=== PATIENT | female | born 1995 | race Caucasian/White ===

== ENCOUNTER 2016-12-19 19:45 | Emergency (ER) | payer MEDICAID ==
[~2016-12-19] VITALS: Ht 162.6 cm; Wt 95.6 kg
[~2016-12-19 19:45] MED LIST: MECL-62 PO; TRAM50 PO
[2016-12-19 19:50] VITALS: BP 122/65; PULSE 74; RESP 18; TEMP 97.9; O2SAT 99
--- NOTE | 2016-12-19 20:50 | PD ---
HPI Chief Complaint: Cold / Flu Symptoms Time Seen by Provider: 20:48 Travel History International Travel<30 days: No Contact w/Intl Traveler<30days: No Traveled to known affect area: No History of Present Illness HPI 21 year-old female presents to the emergency department for complaint of cough and cold symptoms. Patient states she's had cough with associated congestion. Cough has not produced any yellow-green phlegm. Patient denies fever or chills. Patient does not have sore throat earache noted sinus drainage. 2-year -old child has upper respiratory infection at home and doesn't attend daycare. Mother states she is concerned about developing any infection because she is 22 weeks . Patient is 3 para 2 AB 0. Patient is followed closely by her CONTINUITY PERSON and does take vitamins. She did not contact her CONTINUITY PERSON regarding her symptoms. Patient that she would check care first and then further CONTINUITY PERSON subsequently. Patient denies any shortness of breath, chest pain , abdominal pain, back pain, flank pain; no nausea no vomiting; no dysuria frequency urgency hematuria or vaginal bleeding or vaginal discharge. Patient rates pain 0/10 in intensity. PFSH Past Medical History Narrative Medical Ab0; nursing notes reviewed Diminished Hearing: No Hypertension: Yes Immunizations Current: Yes Tetanus Vaccination: > 5 Years Influenza Vaccination: No ?: : 2 Para: 2 Miscarriage: 0 : 0 Past Surgical History Surgical History: No Previous Surgery Social History Alcohol Use: No Tobacco Use: No Substance Use: No Allergies-Medications (Allergen,Severity, Reaction): Coded Allergies: No Known Allergies (Verified , 12/19/16) Reported Meds & Prescriptions Reported Meds & Active Scripts Active No Active Prescriptions or Reported Medications Narrative Medication vitamins Review of Systems Except as stated in HPI: all other systems reviewed are Neg General / Constitutional: No: Fever, Chills HENT: Positive: Congestion, No: Headaches, Sore Throat, Rhinorrhea, Earache Cardiovascular: No: Chest Pain or Discomfort Respiratory: Positive: Cough, No: Shortness of Breath, Wheezing Gastrointestinal: No: Nausea, Vomiting, Abdominal Pain Genitourinary: No: Urgency, Frequency, Dysuria, Hematuria, Pelvic Pain, Flank Pain, Discharge, Vaginal Bleeding Musculoskeletal: No: Myalgias, Arthralgias Skin: No Itching Neurologic: No: Weakness Psychiatric: No: Anxiety Endocrine: No: Heat Intolerance Hematologic/Lymphatic: No: Easy Bruising Physical Exam Narrative GENERAL: Well-developed well-nourished female in no acute distress no respiratory distress SKIN: Warm and dry. HEAD: Normocephalic. EYES: No scleral icterus. No injection or drainage. ENT: Mucous membranes moist ; airway is patent; several dental caries; posterior pharynx no redness no edema no exudative change; tympanic membranes no redness dullness loss of landmarks or perforation. NECK: Supple, trachea midline. No JVD or lymphadenopathy. No meningismus no nuchal rigidity. CARDIOVASCULAR: Regular rate and rhythm without murmurs, gallops, or rubs. RESPIRATORY: Breath sounds equal bilaterally. No accessory muscle use. Lungs are clear to auscultation in all dobbins. GASTROINTESTINAL: Abdomen soft, non-tender, nondistended. Fundal height to umbilicus; heart tones 146 (performed by nursing) MUSCULOSKELETAL: No cyanosis, no edema. BACK: Nontender without obvious deformity. No CVA tenderness. 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 Diagnosis Primary Impression: URI (upper respiratory infection) Qualified Code: J06.9 - Upper respiratory tract infection, unspecified type Additional Impression: Qualified Code: Z3A.22 - 22 weeks gestation of Referrals: Corporate Attorney call for appointment Primary Care Physician call for appointment Additional Instructions: Increase fluid hydration Follow-up with her CONTINUITY PERSON Continue your vitamins May take acetaminophen/Tylenol as needed as often as every 4 hours for fever 100.4F or greater Return to the emergency department for any concerns or change in condition Scripts No Active Prescriptions or Reported Meds Disposition: 01 DISCHARGE HOME Condition: Stable Salter,Vivi H. MD Dec 19, 2016 20:50
== END 2016-12-19 21:05 | disposition home or self-care (01) ==
LOC: PHEFT 19:45
DX: O26.92 Pregnancy related conditions, unspecified, second trimester (principal); O10.912 Unspecified pre-existing hypertension complicating pregnancy, second trimester; J06.9 Acute upper respiratory infection, unspecified; Z3A.22 22 weeks gestation of pregnancy
CPT/HCPCS: 99283

== ENCOUNTER 2017-04-18 11:17 | Inpatient (IN) | payer MEDICAID ==
[~2017-04-18] VITALS: Ht 162.6 cm; Wt 108.0 kg
[2017-04-18] MEDS ORDERED: LACTATED RINGER'S 1000 ML INJ 1,000 ML IV SCH (12:33)
--- NOTE | 2017-04-18 12:41 | HHI.HP ---
HPI Chief Complaint induction at 39 weeks Date Seen: Apr 18, 2017 Time Seen: 12:00 Travel History International Travel<30 Days: No Contact w/Intl Traveler<30Days: No Known Affected Area: No History of Present Illness HPI 22 yo wf who is 39 weeks for induction of labor with favorable cervix Para: 2 : 3 History Past Medical History Medical History: Denies Significant Hx Obstetric History Obstetric History x2 Past Surgical History Surgical History: No Previous Surgery Family History Family History: Negative Social History Alcohol Use: No Tobacco Use: No Substance Abuse: No Allergies-Medications (Allergen,Severity, Reaction): Coded Allergies: No Known Allergies (Verified , 12/19/16) Home Meds No Active Prescriptions or Reported Meds Review of Systems Except as stated in HPI: all other systems reviewed are Neg Physical Exam Narrative GENERAL: Well-nourished, well-developed patient. SKIN: Warm and dry. HEAD: Normocephalic and atraumatic. EYES: No scleral icterus. No injection or drainage. ENT: No nasal drainage noted. Mucous membranes pink. Airway patent. NECK: Supple, trachea midline. No JVD. CARDIOVASCULAR: Regular rate and rhythm without murmurs, gallops, or rubs. RESPIRATORY: Breath sounds equal bilaterally. No accessory muscle use. BREASTS: Bilateral exam showed no masses , no retractions, no nipple discharge. ABDOMEN/GI: Abdomen soft, non-tender, bowel sounds present, no rebound, no guarding Gravid to [-] weeks size Fundal Height: [-] GENITOURINARY: External Genitalia: intact and normal in appearance BUS glands: [-] Cervix: [-] Dilatation: [-] Effacement: [-] Station: [-] Presentation: [-] Membranes: [intact or ruptured] Uterine Contractions: [-] FHT's: Category: [-] Baseline: [-] Reactive: [-] Variability: [-] Decels: [-] EXTREMITIES: No cyanosis or edema. BACK: Nontender without obvious deformity. No CVA tenderness. NEUROLOGICAL: Awake and alert. Motor and sensory grossly within normal limits. Five out of 5 muscle strength in all muscle groups. Normal speech. Data Data Vital Signs Reviewed: Yes Orders Admit To Inpatient (04/18/17 ) Code Status (04/18/17 12:33) Vital Signs (Adult) .Per protocol (04/18/17 12:33) Heart (04/18/17 12:33) Amnioinfusion (04/18/17 12:33) Urinary Catheter Management .ONCE (04/18/17 12:33) Lactated Ringer's 1000 Ml Inj (Lr 1000 M (04/18/17 12:33) Lactated Ringer's 1000 Ml Inj (Lr 1000 M (04/18/17 12:33) Sodium Chlorid 0.9% 500 Ml Inj (Ns 500 M (04/18/17 12:45) Sodium Chlor 0.9% 1000 Ml Inj (Ns 1000 M (04/18/17 12:53) Lidocaine 1% Inj (50 Ml) (Xylocaine 1% I (04/18/17 12:45) Citric Acid-Sodium Citrate Liq (Bicitra (04/18/17 12:45) Fentanyl Inj (Fentanyl Inj) (04/18/17 12:45) Fentanyl Inj (Fentanyl Inj) (04/18/17 12:45) Complete Blood Count With Diff (04/18/17 12:33) Hold Clot (04/18/17 12:33) Abo/Rh Blood Type (04/18/17 12:33) Urinalysis - C+S If Indicated (04/18/17 12:33) Resp Oxygen Non Rebreathe Mask (04/18/17 ) ^ Epidural / Intrathecal Infus (04/18/17 12:33) Oxytocin 30 Units-500ml Premix (Pitocin (04/18/17 12:45) Lidocaine 1% Inj (50 Ml) (Xylocaine 1% I (04/18/17 12:45) Light Mineral Oil (Muri-Lube Oil) (04/18/17 12:45) Inpatient Certification (04/18/17 ) Specimen To Be Collected PRN (04/18/17 12:33) ^ Non Stress Test (04/18/17 12:37) Response To Medication .Post New Med Administration, Reaction (04/18/17 12:37) ^ Discontinue Medication (04/18/17 12:37) Oxytocin 30 Units-500ml Premix (Pitocin (04/18/17 12:45) Assessment/Plan Problem List: (1) 39 weeks gestation of Assessment and Plan for induction of labor Daniel Medellin MD Apr 18, 2017 12:41
[2017-04-18] MEDS ORDERED: SODIUM CHLORID 0.9% 500 ML INJ 500 ML IV PRN (12:45)
[2017-04-18] MEDS ORDERED: OXYTOCIN 30 UNITS-500ML PREMIX 500 ML IV SCH ×2 (12:45→23:15)
[2017-04-18] MEDS ORDERED: MINERAL OIL 10 ML VIAL TOPICAL PRN (12:45)
[2017-04-18] MEDS ORDERED: CITRIC ACID-SODIUM CITRATE LIQ 30 ML UDC PO SCH (12:45)
[2017-04-18] MEDS ORDERED: OXYTOCIN 30 UNITS-500ML PREMIX 500 ML IV ONE (12:45)
[2017-04-18] MEDS ORDERED: LIDOCAINE HCL 1% 50 ML VIAL INFIL PRN (12:45)
[2017-04-18] MEDS ORDERED: LIDOCAINE HCL 1% 50 ML VIAL I-DERMAL PRN (12:45)
[2017-04-18] MEDS ORDERED: SODIUM CHLOR 0.9% 1000 ML INJ 1,000 ML IV PRN (12:53)
[2017-04-18 13:06] LABS: AUTOMATED NEUTROPHIL # 6.1 TH/MM3 (1.8-7.7); BASOPHIL % 0.1 % (0.0-2.0); EOSINOPHIL % 0.4 % (0.0-4.0); HEMATOCRIT 35.5 % (35.0-46.0); HEMO FLAGS DIFF FINAL; LYMPH % 15.4 % (9.0-44.0); LYMPHOCYTE # 1.2 TH/MM3 (1.0-4.8); MEAN CELL VOLUME 86.6 FL (80.0-100.0); MEAN CORPUSCULAR HEMOGLOBIN 28.6 PG (27.0-34.0); MONO % 6.5 % (0.0-8.0); NEUT % 77.6 % (16.0-70.0); PLATELET COUNT 191 TH/MM3 (150-450); RED CELL DISTRIBUTION WIDTH 15.4 % (11.6-17.2); WHITE BLOOD COUNT 7.8 TH/MM3 (4.0-11.0)
[2017-04-18 13:14] LABS: BACTERIA, URINE MOD /hpf; BLOOD, URINE NEG (NEG); COMMENT (UR) CULTURE INDICATED; CULTURE IF INDICATED CULTURE INDICATED; GLUCOSE,URINE NEG (NEG); KETONE, URINE NEG (NEG); MUCUS URINE FEW /lpf (OCC); NITRITE,URINE NEG (NEG); PH, URINE 6.5 (5.0-8.5); SQUAMOUS EPITHELIAL CELL URINE 21 /hpf (0-5); URINE COLOR YELLOW (YELLW/STRAW)
[2017-04-18] MEDS ORDERED: DIPHTH/TETANUS/ACEL PERTUSSIS (BOOSTER) 0.5 ML VIAL/PFS IM ONE (16:00)
[2017-04-18] MEDS ORDERED: MEASLES, MUMPS, RUBELLA VACCINE 0.5 ML VIAL SQ ONE (16:00)
--- NOTE | 2017-04-18 17:01 | PD.LABORPN ---
Subjective Subjective doing well feeling CTX on meds Objective Objective Pelvic Exam: Cervix: 3 Dilatation: 3 Effacement: 80 Station: [-] Presentation: vtx Membranes: AROM ruptured] Uterine Contractions: q2-3 FHT's: Category: 1 Baseline: [-] Reactive: [-] Variability: [-] Decels: [-] Assessment/Plan Problem List: (1) 39 weeks gestation of Plan: pitocin now AROM Daniel Medellin MD Apr 18, 2017 17:01
[2017-04-18] MEDS: LACTATED RINGER'S 1000 ML INJ 1,000 ML IV PRN ×2 (17:32→18:52)
[2017-04-18] MEDS ORDERED: fentaNYL 2MCG-BUPIV 0.125% INJ 100 ML ONE (17:39)
[2017-04-18] MEDS ORDERED: ePHEDrine/NS 25 MG/5 ML SYR ONE (17:39)
[2017-04-18] MEDS ORDERED: fentaNYL 2MCG-BUPIV 0.125% 100 ML EPIDURAL SCH (19:15)
[2017-04-18] MEDS ORDERED: ePHEDrine/NS 25 MG/5 ML SYR IV PRN (19:15)
[2017-04-18] MEDS ORDERED: NO SYSTEM NARCOTICS PRN (19:15)
[2017-04-18] MEDS ORDERED: DO NOT ADMINISTER ANTICOAGULANTS PRN (19:15)
[2017-04-18] MEDS ORDERED: ONDANSETRON HCL 4 MG/2 ML VIAL ONE (19:21)
--- NOTE | 2017-04-18 23:04 | PD.OB.DELI ---
Delivery Date: Apr 18, 2017 Anesthesia: Epidural Episiotomy: None Vaginal Delivery: Normal, Spontaneous Presentation: Occiput anterior Nuchal Cord: None Delayed cord clamping (45 sec): Yes : Male One Minute : 8 Five Minute : 9 Weight: 8#12 oz Placenta: Spontaneous delivery, Intact, 3 vessel cord Laceration: Vaginal laceration, 1 deg Repair: Chromic running Daniel Medellin MD Apr 18, 2017 23:04
[2017-04-18] MEDS ORDERED: ONDANSETRON ODT 4 MG TAB PO PRN (23:15)
[2017-04-18] MEDS ORDERED: oxyCODONE/ACETAMINOPHEN 5 MG/325 MG TAB PO PRN ×2 (23:15)
[2017-04-18] MEDS ORDERED: ZOLPIDEM TARTRATE 5 MG TAB PO PRN (23:15)
[2017-04-18] MEDS ORDERED: SODIUM CHLORIDE 0.9% FLUSH 10 ML FLUSH IV FLUSH PRN (23:15)
[2017-04-18] MEDS ORDERED: ALUMINUM/MAGNESIUM/SIMETH 30 ML CUP PO PRN (23:15)
[2017-04-18] MEDS ORDERED: BENZOCAINE 20% TOPICAL SPRAY 60 ML CAN TOPICAL PRN (23:15)
[2017-04-19] MEDS: WITCH HAZEL 50%/GLYCERIN 12.5% 40 PAD JAR TOPICAL PRN ×2 (01:30→20:45)
[2017-04-19] MEDS: DOCUSATE SODIUM 50 MG/SENNA 8.6 MG TAB PO PRN ×2 (01:31→20:33)
[2017-04-19] MEDS: IBUPROFEN 600 MG TAB PO PRN ×4 (01:31→20:33)
[2017-04-19] MEDS: ACETAMINOPHEN 325 MG TAB PO PRN ×3 (06:39→20:33)
[2017-04-19] MEDS ORDERED: SODIUM CHLORIDE 0.9% FLUSH 10 ML FLUSH IV FLUSH SCH (09:00)
--- NOTE | 2017-04-19 11:33 | HHI.OB ---
Subjective Post Day: 2 Remarks doing well Objective Objective Remarks GENERAL: Well-nourished, well-developed patient. ABDOMEN/GI: Abdomen soft, non-tender. Fundus: Firm, non-tender at umbilicus. GENITOURINARY: Light to moderate bleeding. EXTREMITIES: No cyanosis or edema, non-tender, without signs of DVT. Medications and IVs Current Medications Medications (Trade) Dose Ordered Sig/Awa Route Start Time Stop Time Status Last Admin Miscellaneous Information No systemic narcotics to be given except... UNSCH PRN .XX 04/18/17 19:15 04/19/17 19:14 Miscellaneous Information DO NOT ADMINISTER ANY ANTICOAGUL... UNSCH PRN .XX 04/18/17 19:15 04/19/17 19:14 (NS Flush) 2 ml BID IV FLUSH 04/19/17 09:00 (NS Flush) 2 ml UNSCH PRN IV FLUSH 04/18/17 23:15 (Tylenol) 650 mg Q4H PRN PO 04/18/17 23:15 04/19/17 06:39 (Motrin) 600 mg Q6H PRN PO 04/18/17 23:15 04/19/17 06:39 (Percocet 5-325 Mg) 1 tab Q4H PRN PO 04/18/17 23:15 (Percocet 5-325 Mg) 2 tab Q4H PRN PO 04/18/17 23:15 (Americaine 20% Top Spr) 1 spray Q4H PRN TOPICAL 04/18/17 23:15 04/19/17 01:31 (Tucks Pads) 1 applic QID PRN TOPICAL 04/18/17 23:15 04/19/17 01:30 (Zoe-Colace) 2 tab Q12H PRN PO 04/18/17 23:15 04/19/17 01:31 (Ambien) 5 mg HS PRN PO 04/18/17 23:15 (Mag-Al Plus Susp Liq) 15 ml Q8H PRN PO 04/18/17 23:15 (Zofran Odt) 4 mg Q6H PRN PO 04/18/17 23:15 Assessment/Plan Problem List: (1) 39 weeks gestation of Plan: pitocin now AROM (2) Spontaneous vaginal delivery Assessment and Plan Lacie,Daniel Rajan C. MD Apr 19, 2017 11:33
[2017-04-20 08:00] VITALS: BP 136/78; PULSE 73; RESP 18; TEMP 97.8
[2017-04-20] MEDS: DOCUSATE SODIUM 50 MG/SENNA 8.6 MG TAB PO PRN (09:15)
[2017-04-20] MEDS: ACETAMINOPHEN 325 MG TAB PO PRN ×2 (09:16→15:36)
[2017-04-20] MEDS: IBUPROFEN 600 MG TAB PO PRN ×2 (09:16→15:36)
--- NOTE | 2017-04-20 13:47 | HHI.OB ---
Subjective Post Day: 2 Remarks doing well Objective Vitals/I&O Vital Signs Date Time Temp Pulse Resp B/P Pulse Ox O2 Delivery O2 Flow Rate FiO2 04/20/17 08:00 97.8 73 18 04/20/17 08:00 136/78 Objective Remarks GENERAL: Well-nourished, well-developed patient. ABDOMEN/GI: Abdomen soft, non-tender. Fundus: Firm, non-tender at umbilicus. GENITOURINARY: Light to moderate bleeding. EXTREMITIES: No cyanosis or edema, non-tender, without signs of DVT. Medications and IVs Current Medications Medications (Trade) Dose Ordered Sig/Awa Route Start Time Stop Time Status Last Admin (NS Flush) 2 ml BID IV FLUSH 04/19/17 09:00 (NS Flush) 2 ml UNSCH PRN IV FLUSH 04/18/17 23:15 (Tylenol) 650 mg Q4H PRN PO 04/18/17 23:15 04/20/17 09:16 (Motrin) 600 mg Q6H PRN PO 04/18/17 23:15 04/20/17 09:16 (Percocet 5-325 Mg) 1 tab Q4H PRN PO 04/18/17 23:15 (Percocet 5-325 Mg) 2 tab Q4H PRN PO 04/18/17 23:15 (Americaine 20% Top Spr) 1 spray Q4H PRN TOPICAL 04/18/17 23:15 04/19/17 01:31 (Tucks Pads) 1 applic QID PRN TOPICAL 04/18/17 23:15 04/19/17 20:45 (Zoe-Colace) 2 tab Q12H PRN PO 04/18/17 23:15 04/20/17 09:15 (Ambien) 5 mg HS PRN PO 04/18/17 23:15 (Mag-Al Plus Susp Liq) 15 ml Q8H PRN PO 04/18/17 23:15 (Zofran Odt) 4 mg Q6H PRN PO 04/18/17 23:15 Assessment/Plan Problem List: (1) 39 weeks gestation of Plan: pitocin now AROM (2) Spontaneous vaginal delivery Assessment and Plan Daniel Medellin MD Apr 20, 2017 13:47
[2017-04-20] MEDS ORDERED: OXYC1TAB63 PO (13:48)
--- NOTE | 2017-04-20 13:49 | HHI.DCPOC ---
Discharge Care Plan Diagnosis: (1) Spontaneous vaginal delivery Report Symptoms to Your Doctor -Temperature above 100.5 degrees -Redness, of incision or excessive or foul smelling drainage -Unusual pain or calf pain -Increased vaginal bleeding -Painful or difficulty urinating -Feelings of extreme sadness or anxiety after 2 weeks Goals to Promote Your Health * To prevent worsening of your condition and complications * To maintain your health at the optimal level Directions to Meet Your Goals Take your medications as prescribed Follow your dietary instruction Follow activity as directed Ensure plenty of rest for recovery Drink fluids for hydration Keep your appointments as scheduled Take your immunizations and boosters as scheduled If your symptoms worsen call your PCP, if no PCP go to Urgent Care Center or Emergency Room Smoking is Dangerous to Your Health. Avoid second hand smoke Call the 24-hour crisis hotline for domestic abuse at Daniel Medellin MD Apr 20, 2017 13:49
--- NOTE | 2017-04-20 13:50 | HHI.DS ---
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
== END 2017-04-20 16:03 | disposition home or self-care (01) | DRG 775 ==
LOC: H2EB 11:17 → H1EA 04-19 00:49
PROVIDERS: ADMIT Obstetrics & Gynecology; ATTEND Obstetrics & Gynecology
PROC: 10E0XZZ Delivery of Products of Conception, External Approach (ICD-10-PCS; principal; 2017-04-18)
PROC: 0HQ9XZZ Repair Perineum Skin, External Approach (ICD-10-PCS; 2017-04-18)
PROC: 00HU33Z Insertion of Infusion Device into Spinal Canal, Percutaneous Approach (ICD-10-PCS; 2017-04-18)
PROC: 3E0R3CZ (ICD-10-PCS; 2017-04-18)
PROC: 10907ZC Drainage of Amniotic Fluid, Therapeutic from Products of Conception, Via Natural or Artificial Opening (ICD-10-PCS; 2017-04-18)
DX: O70.0 First degree perineal laceration during delivery (principal); Z37.0 Single live birth; Z3A.39 39 weeks gestation of pregnancy
CPT/HCPCS: 59025; 81001; 85025; 87086; J2405; J2590; J7120

== ENCOUNTER 2017-04-26 13:00 | Emergency (ER) | payer MEDICAID ==
[~2017-04-26] VITALS: Ht 162.6 cm; Wt 98.0 kg
[2017-04-26 13:00] VITALS: BP 162/84; PULSE 71; RESP 16; TEMP 98.1; O2SAT 97
[~2017-04-26 13:00] MED LIST changes: -MECL-62 PO; +OXYC1TAB63 PO; -TRAM50 PO
[2017-04-26 13:24] LABS: BLOOD, URINE LARGE (NEG); GLUCOSE,URINE NEG (NEG); KETONE, URINE NEG (NEG); NITRITE,URINE NEG (NEG); PH, URINE 6.5 (5.0-8.5)
[2017-04-26 13:25] LABS: METHOD OF COLLECTION CLEAN CATCH; URINE COLOR YELLOW (YELLW/STRAW)
[2017-04-26 13:30] LABS: BACTERIA, URINE FEW /hpf; CULTURE IF INDICATED CULTURE INDICATED
[2017-04-26 13:31] LABS: COMMENT (UR) CULTURE INDICATED; COMMENT2 (UR) MUCOUS PRESENT
--- NOTE | 2017-04-26 13:40 | PD ---
HPI Chief Complaint: Abdominal Pain Time Seen by Provider: 13:34 Travel History International Travel<30 days: No Contact w/Intl Traveler<30days: No Traveled to known affect area: No History of Present Illness HPI Patient presents with acute onset of right lower abdominal quadrant pain yesterday that has radiated across to the left today. Denies any change in urine or bowel. Denies any chest pain shortness of breath. Denies any nausea vomiting or fever. Reports a vaginal 8 days ago with a first-degree tear. She is not breast-feeding. Denies any previous abdominal surgeries. PFSH Past Medical History Diminished Hearing: No Hypertension: Yes Immunizations Current: Yes ?: Not LMP: ONE WEEK POST : 2 Para: 2 Miscarriage: 0 : 0 Social History Alcohol Use: No Tobacco Use: No Substance Use: No Allergies-Medications (Allergen,Severity, Reaction): Coded Allergies: No Known Allergies (Verified , 04/26/17) Reported Meds & Prescriptions Reported Meds & Active Scripts Active No Active Prescriptions or Reported Medications Review of Systems General / Constitutional: No: Fever Eyes: No: Visual changes HENT: No: Headaches Cardiovascular: No: Chest Pain or Discomfort Respiratory: No: Shortness of Breath Gastrointestinal: Positive: Abdominal Pain Genitourinary: No: Dysuria Musculoskeletal: No: Pain Skin: No Rash Neurologic: No: Weakness Psychiatric: No: Depression Endocrine: No: Polydipsia Hematologic/Lymphatic: No: Easy Bruising Physical Exam Narrative GENERAL: Well-nourished, well-developed patient. SKIN: Focused skin assessment warm/dry. HEAD: Normocephalic. EYES: No scleral icterus. No injection or drainage. NECK: Supple, trachea midline. No JVD or lymphadenopathy. CARDIOVASCULAR: Regular rate and rhythm without murmurs, gallops, or rubs. RESPIRATORY: Breath sounds equal bilaterally. No accessory muscle use. GASTROINTESTINAL: Abdomen soft, diffusely tender over the entire abdomen, nondistended. MUSCULOSKELETAL: No cyanosis, or edema. BACK: Nontender without obvious deformity. No CVA tenderness. Data Data Last Documented VS Vital Signs Date Time Temp Pulse Resp B/P Pulse Ox O2 Delivery O2 Flow Rate FiO2 04/26/17 13:51 97 Room Air 04/26/17 13:00 98.1 71 16 162/84 Orders Urinalysis - C+S If Indicated (04/26/17 13:07) Urine Culture (04/26/17 13:15) Complete Blood Count With Diff (04/26/17 13:34) Comprehensive Metabolic Panel (04/26/17 13:34) Lactic Acid (04/26/17 13:34) Ct Abd/Pel W Iv Contrast(Rout) (04/26/17 13:34) Iv Access Insert/Monitor (04/26/17 13:34) Ecg Monitoring (04/26/17 13:34) Oximetry (04/26/17 13:34) NPO (04/26/17 13:34) Sodium Chloride 0.9% Flush (Ns Flush) (04/26/17 13:45) Iohexol 350 Inj (Omnipaque 350 Inj) (04/26/17 14:10) Labs Laboratory Tests Test 04/26/17 04/26/17 13:15 13:52 Urine Collection Type CLEAN CATCH Urine Color YELLOW Urine Turbidity SLIGHT Urine pH 6.5 Urine Specific [place] 1.014 Urine Protein 30 mg/dL Urine Glucose (UA) NEG mg/dL Urine Ketones NEG mg/dL Urine Occult Blood LARGE Urine Nitrite NEG Urine Bilirubin NEG Urine Leukocyte Esterase LARGE Urine RBC 10-14 /hpf Urine WBC 50-99 /hpf Urine WBC Clumps MOD Urine Squamous Epithelial 6-8 /hpf Cells Urine Amorphous Sediment FEW Urine Bacteria FEW /hpf Microscopic Urinalysis Comment CULTURE INDICATED Urine Collection Time 1315 White Blood Count 5.7 TH/MM3 Red Blood Count 4.58 MIL/MM3 Hemoglobin 13.1 GM/DL Hematocrit 38.6 % Mean Corpuscular Volume 84.3 FL Mean Corpuscular Hemoglobin 28.5 PG Mean Corpuscular Hemoglobin 33.8 % Concent Red Cell Distribution Width 14.0 % Platelet Count 308 TH/MM3 Mean Platelet Volume 6.7 FL Neutrophils (%) (Auto) 73.1 % Lymphocytes (%) (Auto) 19.9 % Monocytes (%) (Auto) 4.8 % Eosinophils (%) (Auto) 1.7 % Basophils (%) (Auto) 0.5 % Neutrophils # (Auto) 4.2 TH/MM3 Lymphocytes # (Auto) 1.1 TH/MM3 Monocytes # (Auto) 0.3 TH/MM3 Eosinophils # (Auto) 0.1 TH/MM3 Basophils # (Auto) 0.0 TH/MM3 CBC Comment DIFF FINAL Differential Comment Sodium Level 143 MEQ/L Potassium Level 3.6 MEQ/L Chloride Level 111 MEQ/L Carbon Dioxide Level 23.0 MEQ/L Anion Gap 9 MEQ/L Blood Urea Nitrogen 10 MG/DL Creatinine 0.68 MG/DL Estimat Glomerular Filtration 106 ML/MIN Rate Random Glucose 80 MG/DL Lactic Acid Level 0.8 mmol/L Calcium Level 8.9 MG/DL Total Bilirubin 0.3 MG/DL Aspartate Amino Transf 36 U/L (AST/SGOT) Alanine Aminotransferase 79 U/L (ALT/SGPT) Alkaline Phosphatase 160 U/L Total Protein 7.1 GM/DL Albumin 3.0 GM/DL MDM Medical Decision Making Medical Screen Exam Complete: Yes Emergency Medical Condition: Yes Differential Diagnosis Ovarian torsion, postdelivery pain, bowel obstruction, ileus, appendicitis Narrative Course Assessment and plan discussed with patient and at bedside. Last 72 hours Impressions Abdomen/Pelvis CT 04/26/17 1334 Signed Impressions: Service Date/Time: Wednesday, April 26, 2017 14:00 - CONCLUSION: 1. Enlarged uterus characteristic of expected appearance. 2. No evidence of extrauterine fluid collections or acute process. 3. Unremarkable exam. Jude Winters MD Diagnosis Primary Impression: Dysuria Patient Instructions: General Instructions Additional Instructions: Motrin Tylenol for her discomfort. Encourage fluids and cranberry. Short course of antibiotics. Follow-up with COMPONENT ENGINEER. Return to emergency room with any worsening of symptoms Med/Other Pt SpecificInfo: Prescription(s) given Scripts Ciprofloxacin (Cipro)500 Mg Qzo823 Mg PO BID 3 Days Ref 0 Prov:Oliver Nava MD 04/26/17 Disposition: 01 DISCHARGE HOME Condition: Good Oliver Nava MD Apr 26, 2017 13:39
[2017-04-26] MEDS ORDERED: SODIUM CHLORIDE 0.9% FLUSH 10 ML FLUSH IV FLUSH PRN (13:45)
[2017-04-26 13:51] VITALS: O2SAT 97
[2017-04-26 13:56] LABS: AUTOMATED NEUTROPHIL # 4.2 TH/MM3 (1.8-7.7); BASOPHIL % 0.5 % (0.0-2.0); EOSINOPHIL # 0.1 TH/MM3 (0-0.4); EOSINOPHIL % 1.7 % (0.0-4.0); HEMATOCRIT 38.6 % (35.0-46.0); HEMO FLAGS DIFF FINAL; LYMPH % 19.9 % (9.0-44.0); LYMPHOCYTE # 1.1 TH/MM3 (1.0-4.8); MEAN CELL VOLUME 84.3 FL (80.0-100.0); MEAN CORPUSCULAR HEMOGLOBIN 28.5 PG (27.0-34.0); MEAN CORPUSCULAR HGB CONC 33.8 % (32.0-36.0); MONO % 4.8 % (0.0-8.0); NEUT % 73.1 % (16.0-70.0); PLATELET COUNT 308 TH/MM3 (150-450); RED BLOOD COUNT 4.58 MIL/MM3 (4.00-5.30); WHITE BLOOD COUNT 5.7 TH/MM3 (4.0-11.0)
[2017-04-26 14:05] LABS: CHLORIDE 111 MEQ/L (98-107); POTASSIUM 3.6 MEQ/L (3.5-5.1); SODIUM (NA) 143 MEQ/L (136-145)
[2017-04-26 14:08] LABS: ANION GAP 9 MEQ/L (5-15); BLOOD UREA NITROGEN 10 MG/DL (7-18)
[2017-04-26] MEDS ORDERED: IOHEXOL 350 MG/ML 10 ML VIAL (for RAD DIAG) IV ONE (14:10)
[2017-04-26 14:11] LABS: ALT (GPT) 79 U/L (10-53); AST (GOT) 36 U/L (15-37); GLOMERULAR FILTRATION RATE 106 ML/MIN (>89)
[2017-04-26 14:13] LABS: TOTAL BILIRUBIN ADULT 0.3 MG/DL (0.2-1.0)
[2017-04-26 14:14] LABS: ALKALINE PHOSPHATASE 160 U/L (45-117)
--- NOTE | 2017-04-26 14:48 | RADRPT ---
EXAM DATE/TIME: 04/26/2017 14:00 [facility] COMPARISON: No previous studies available for comparison. INDICATIONS : Right lower quadrant pain. IV CONTRAST: 95 cc Omnipaque 350 (iohexol) IV ORAL CONTRAST: No oral contrast ingested. RADIATION DOSE: 20.96 CTDIvol (mGy) MEDICAL HISTORY : Hypertension. SURGICAL HISTORY : None. ENCOUNTER: Initial ACUITY: 2 days PAIN SCALE: 6/10 LOCATION: Right lower quadrant TECHNIQUE: Volumetric scanning of the abdomen and pelvis was performed. Using automated exposure control and ad justment of the mA and/or kV according to patient size, radiation dose was kept as low as reasonably achievable to obtain optimal diagnostic quality images. DICOM format image data is available electro nically for review and comparison. FINDINGS: LOWER LUNGS: The visualized lower lungs are clear. LIVER: The liver is diffusely hypodense. There are no focal lesions or evidence of biliary duct dilatation. There are no calcified gallstones. SPLEEN: Normal size without lesion. PANCREAS: Within normal limits. KIDNEYS: Normal in size and shape. There is no mass, stone or hydronephrosis. ADRENAL GLANDS: Within normal limits. VASCULAR: There is no aortic aneurysm. BOWEL/MESENTERY: The stomach, small bowel, and colon demonstrate no acute abnormality. There is no free intraperitone al air or fluid. ABDOMINAL WALL: Within normal limits. RETROPERITONEUM: There is no lymphadenopathy. BLADDER: No wall thickening or mass. REPRODUCTIVE: The uterus is enlarged characteristic of a appearance INGUINAL: There is no lymphadenopathy or hernia. MUSCULOSKELETAL: Within normal limits for patient age. CONCLUSION: 1. Enlarged uterus characteristic of expected appearance. 2. No evidence of extrauterine fluid collections or acute process. 3. Unremarkable exam. Jude Winters MD on April 26, 2017 at 14:41 Board Certified Radiologist. This report was verified electronically.
[2017-04-26] MEDS ORDERED: CIPR-9 PO (14:55)
== END 2017-04-26 15:06 | disposition home or self-care (01) ==
LOC: PHED 13:00
DX: O90.89 Other complications of the puerperium, not elsewhere classified (principal); R30.0 Dysuria; R10.84 Generalized abdominal pain; I10 Essential (primary) hypertension
CPT/HCPCS: 74177; 80053; 81001; 83605; 85025; 87086; 99285; Q9967